=== PATIENT | female | born 1990 | race Caucasian/White ===

== ENCOUNTER 2016-06-15 14:20 | Inpatient (IN) | payer OTHER ==
[2016-06-15 16:01] VITALS: BMI 41.8
[2016-06-15] MEDS ORDERED: IV START KIT ONE (16:18)
[2016-06-15] MEDS ORDERED: LIDOCAINE 1% (PRES FREE) 30 ML VIAL ONE (16:19)
[2016-06-15] MEDS ORDERED: OXYTOCIN 10 UNITS/ML VIAL ONE (16:19)
[2016-06-15] MEDS ORDERED: LIDOCAINE Viscous 2% 15 ML UDCUP ONE (16:19)
[2016-06-15] MEDS ORDERED: OXYTOCIN IN LR 500 ML IV ONE (16:19)
[2016-06-15] MEDS ORDERED: MINERAL OIL 25 ML BOT ONE (16:19)
[2016-06-15] MEDS ORDERED: PUMP TUBING ONE (16:19)
[2016-06-15 17:26] LABS: HEMATOCRIT 39.2 % (37.0-47.0); HEMOGLOBIN 13.7 gm/l (12.0-16.0); MEAN CELL VOLUME 87.1 fl (81.0-99.0); MEAN CORPUSCULAR HEMOGLOBIN 30.4 pg (27.0-31.0); MEAN CORPUSCULAR HGB CONC 34.9 g/dl (33.0-37.0)
[2016-06-15 17:48] LABS: ALBUMIN 3.2 gm/dL (3.5-5.7); CALCIUM 9.4 mg/dL (8.6-10.3)
--- NOTE | 2016-06-15 17:51 | US ---
EXAMINATION : OB LIMITED HISTORY: Assess position. Patient in active labor. ASIM 06/10/2016. 40 weeks 5 days. COMPARISONS: Prior exam dated 11/30/2015. FINDINGS: There is a live intrauterine fetus in cephalic presentation of facing maternal left. Spine towards maternal right. heart rate at 164 bpm. IMPRESSION: Live intrauterine fetus in cephalic presentation. The findings were uploaded to the electronic medical record for review at approximately 5:49 PM 06/15/2016
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
[2016-06-15 21:42] LABS: CREATININE,RANDOM URINE 93 mg/dL
[2016-06-16] MEDS ORDERED: FENTANYL 100 MCG/2 ML VIAL ONE (10:41)
[2016-06-16] MEDS ORDERED: FENTANYL 100 MCG/2 ML VIAL IV ONE (11:05)
[2016-06-16] MEDS: LACTATED RINGERS 1,000 ML IV PRN ×2 (14:20→15:30)
[2016-06-16] MEDS ORDERED: FENTANYL/ROPIVACAINE EPIDURAL 250 ML EP ONE (14:25)
[2016-06-16] MEDS ORDERED: EPIDURAL PUMP SET ONE (14:25)
[2016-06-16] MEDS ORDERED: EPIDURAL PROCEDURE TRAY ONE (14:49)
--- NOTE | 2016-06-16 15:13 | PDOC36 ---
Provider Note Subject: CNM labor progress note Note: S: Sarah has been alternating between resting in bed and moving to encourage and cope with contractions over the last few hours. Around 0030, the contractions became too difficult to cope with in bed, so she has been mobilizing and breathing actively over the past hour, using hands and knees, the ball, and standing. She is unable to talk through contractions and is tearful with some. Feels them mainly in her lower abdomen, like a "bowling ball between her legs." Coping well and supported at bedside with Mitesh and friend Leon. O: VSS: T 36.6, P 100 bpm, BP 104/58 ctx q 2.5-3.5 minutes apart FHTs by IA: 145bpm, no decreases, no increases heard with auscultation ROT-ALANA by palpation A: IUP at 40wks, 6d GBS neg ROM x 13 hours Active labor FHR normal P: Continue assessment by IA, increase to q 30 minutes since patient is move active Encourage hands on support and position changes Pitocin augmentation not strongly recommended at this time as patient appears to be in active labor Reassess labor progress in 2 hours, recommend vaginal exam in 2-3 hours to assess progress Anticipate CALEB Frank
[2016-06-16] MEDS: FENTANYL/ROPIVACAINE EPIDURAL 250 ML EP SCH (15:14)
--- NOTE | 2016-06-16 15:14 | PDOC36 ---
Provider Note Subject: CNM Labor Progress Note Note: S: Sarah very tearful, states that she is "done." Reports an increase in pressure and has been actively trying position changes. Contractions mainly felt in her abdomen. Wants to have a vaginal exam to know labor progress. After exam, Sarah became very tearful, very overwhelmed by the pain of labor and lack of cervical change. Discussed options and risks and benefits of using tub/ shower, fentanyl, and epidural. Acknowledged that this is not where she anticipated being at this point in labor. Wants to try fentanyl and see if she can have a nap and reassess her energy and coping. O: BP 142/82, P 118, T 36.7, R 18/min FHTs by IA 150 ctx q 1.5- 3 minutes, approximately 60 s VE: 5/ 90%/-1, cervix mainly on left side, back on right side Coupling with contractions A: IUP at 40w6d Active labor, slow progress, GBS neg ROM x 22 hours, clear fluid, afebrile status normal P: 50 mcg Fentanyl administered IV cEFM during and one hour after administration of Fentanyl, reassess coping and pain management around noon After nap, encourage side lying static stretch on right side to support pelvic alignment, hands and knees and lunges in bed to promote rest CALEB Ojeda
[2016-06-16] MEDS ORDERED: EPHEDRINE SULFATE 50 MG/ML 1ML VIAL IV PRN (15:32)
[2016-06-16] MEDS ORDERED: NALOXONE HCL 0.4 MG/ML VIAL IV PRN (15:32)
[2016-06-16] MEDS ORDERED: METOCLOPRAMIDE HCL 5 MG/ML 2ML VIAL IV PRN (15:32)
[2016-06-16] MEDS ORDERED: SODIUM CHLORIDE 0.9% 500 ML IV PRN (15:32)
[2016-06-16] MEDS ORDERED: NALBUPHINE HCL 20 MG/ML AMP IV PRN (15:32)
[2016-06-16] MEDS ORDERED: ONDANSETRON 4 MG/2ML 2 ML VIAL IV PRN (15:32)
[2016-06-16] MEDS ORDERED: DIPHENHYDRAMINE HCL 50 MG/1 ML VIAL IV PRN (15:32)
[2016-06-16] MEDS ORDERED: LACTATED RINGERS 500 ML IV PRN (15:32)
[2016-06-16] MEDS: LACTATED RINGERS 1,000 ML IV SCH ×2 (18:21→18:54)
[2016-06-16] MEDS: OXYTOCIN IN LR 500 ML IV PRN ×5 (19:16→21:40)
--- NOTE | 2016-06-16 19:40 | PDOC36 ---
Provider Note Subject: Labor Progress Note Note: S: Assuming care of the patient. Resting comfortably with epidural. Denies feeling any sensation of pressure. O: EFM: 140/moderate variability/accels present/decels absent [place]: q 6-10 mins, moderate to palpation SVE: deferred due to prolonged SROM with inadequate contraction pattern (would not ion exchange operator at this point) VS: BP 127/56, HR 110, T 98.6F A: 25 year old at 40w6d Protracted active labor Inadequate contraction pattern after epidural anesthesia SROM x 31 hours; afebrile Maternal tachycardia (since admission) Suspected malposition P: Start pitocin augmentation. Consented patient on risks and benefits; patient agrees with plan. Positioned on right exaggerated Calle to facilitate rotation. Closely monitor for s/s of infection. Reassess SVE after 2 hours of adequate contraction pattern
--- NOTE | 2016-06-16 22:24 | PDOC36 ---
Provider Note Subject: Labor Progress Note Note: S: Resting in bed. Comfortable. Denies feeling any pressure/change in sensation. O: EFM: 150/moderate variability/accels present/decels absent [place]: q 2-4 mins, moderate to palpation SVE: 6.5/100/ROT/anterior asynclitic/-1/bulging forebag VS: HR 114, BP 123/64, T 36.6C Pitocin at 5mU/min A: Protracted active labor; pitocin augmentation SROM x 34 hours; afebrile FHR Cat 1 Maternal tachycardia Forebag present P: AROM of forebag for clear fluid. Continue with pitocin augmentation. Reassess SVE in 2-3 hours or PRN. Discussed IUPC placement if no further change.
[2016-06-17] MEDS ORDERED: ROPIVACAINE 0.5% 30 ML VIAL ONE (00:19)
--- NOTE | 2016-06-17 01:20 | PDOC36 ---
Provider Note Subject: S: Complained of lower back and rectal pressure at 2330. Exam unchanged. head attempting to rotate during contraction but not descending. Recommended IUPC and patient agreed. IUPC placed anteriorly without complication. Hip feels constricted on left side. 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 Discussed that pressure in lower back is likely due to attempts to rotate but is having difficulty finding space in the anterior/posterior pelvic diameter. Breathing through contractions. O: EFM: 150/moderate variability/accels present/decels absent IUPC: q 2-3 mins, 200 MVUs SVE: 7/100/-2/ROP/ant asynclitic (during placement of IUPC at 2330) VS: BP 116/56, HR 112, T 36.6C Pitocin at 7mU/min A: Prolonged SROM x 37 hours; afebrile Maternal tachycardia Protracted active labor; malposition/asynclitism Suspected cephalopelvic disproportion Pitocin augmentation FHR Cat 1 P: Called anesthesia to help with discomfort. Side lying release on right side x 25 mins. Simulated assymetrical squat on both sides with stirrups while patient getting pain relief. Will do exaggerate Calle on left and right side. Reassess in 2 hours and evaluate for primary c/s at this time. Patient aware that c/s is a possibility.
[2016-06-17] MEDS ORDERED: CEFAZOLIN SODIUM 2 GRAM PREMIX 2 G in Premix (D5W) 100 ml 1 EACH IV ONE (03:35)
[2016-06-17] MEDS ORDERED: ONDANSETRON 4 MG/2ML 2 ML VIAL IV ONE (03:36)
--- NOTE | 2016-06-17 03:51 | PDOC36 ---
Provider Note Subject: Labor Progress Note Note: S: Resting in bed. Starting to feel low back pressure again. O: EFM: 150/moderate variability/accels present/decels absent IUPC: q 2-3 mins, MVUs 195 SVE: 6/100/-2/OP/molding/caput Pitocin at 7 mU/min VS: HR 122 BP 115/60 T 37.7C A: Arrest of dilation x 5 hours with adequate contractions x 4 hours malposition Suspected cephalopelvic disproportion Prolonged SROM x 40 hours Afebrile Maternal tachycardia P: Discussed lack of change x 5 hours and only 1 cm change since 1000 yesterday morning. Multiple efforts at facilitating rotation. Discussed molding at - 2 station suggesting malposition and cephalopelvic disproportion.
--- NOTE | 2016-06-17 04:23 | PDOC36 ---
Provider Note Subject: Intrapartum consult Note: 25yo primigravida, at 40+5w, admitted with SROM 06/15/16 in PM. Pt had expectant management initially, and received epidural. Pt progressed to 5cm at 5am. Pt was started on pitocin at around 1900 and was 5cm at that time. However despite pitocin and adequate contractions, has been 6cm x 5 hours with moulding and no significant change. YARD SUPERVISOR consulted for primary c/section delivery. FHT is reactive and reassuring at this time Mcloud shows contractions q2-3 min Discussed c/section delivery indication and risks including bleeding, infection , injury to bowel, bladder, other organs. Postoperative expectations reviewed Anesthesia is aware.
[2016-06-17] MEDS ORDERED: FENTANYL 100 MCG/2 ML VIAL IV ONE (05:58)
[2016-06-17] MEDS: FENTANYL/ROPIVACAINE EPIDURAL 250 ML EP SCH (06:21)
[2016-06-17] MEDS: LACTATED RINGERS 1,000 ML IV SCH ×3 (06:21→14:41)
--- NOTE | 2016-06-17 06:43 | PDOC36 ---
Provider Note Subject: Labor Progress Note Note: S: Patient feeling rectal/back pressure again. Anesthesia called to help patient become more comfortable. Patient prepped for c/s and team called. Decision made to evaluate SVE prior to c/s in case of cervical change. O: EFM: 150/moderate variability/accels present/decels absent IUPC: MVUs 190, cxing q 2-4 mins SVE: 8/100/-1 VS: BP 115/60, HR 122 T 37.7C Pitocin: off A: Protracted active labor; progress since last exam SROM x 42 hours; afebrile FHR Cat 1 Suspected malposition P: Discussed cervical change with patient and Dr. garcia. Decision made collectively in light of stable maternal and status to continue to allow patient to labor for another 4 hours and reassess at that time whether c/s is still indicated. Reassess SVE in 4 hours or PRN.
[2016-06-17] MEDS ORDERED: MISOPROSTOL 200 MCG TABLET ONE (07:51)
[2016-06-17] MEDS ORDERED: CEFAZOLIN SODIUM 2 GRAM DUPLEX 2 G in Premix (D5W) 50 ml 1 EACH IV PRN (10:58)
[2016-06-17] MEDS ORDERED: LACTATED RINGERS 1,000 ML IV SCH (11:00)
--- NOTE | 2016-06-17 11:11 | PDOC36 ---
Provider Note Subject: Pre-op note Note: Daqna apparently progressed to 8cm, while waiting for Dr Khan to finish another emergency surgery. It was dedcided to allow her to progress further with monitoring contractions with an IUPC. Pitocin was continued. Unfortunately she has had no further change, no descent. Options were reviewed with pt and family. I am recommending a c/section for delivery. Exam shows EFW 8+ lbs, with breech in LUQ, probable posterior position. FH stable with no worrisome findings. 130's with accels. IMP: Failure to progress [id number] adequate labor. Probable malpositon with a large baby. Plan: Primary c/section.
[2016-06-17] MEDS ORDERED: ROPIVACAINE 0.75% 20 ML AMP ONE ×2 (11:15→11:50)
[2016-06-17] MEDS ORDERED: EPHEDRINE SULFATE UD SYR 25 MG 25 MG/5 ML SYRINGE IV ONE (11:48)
[2016-06-17] MEDS ORDERED: OXYTOCIN 10 UNITS/ML VIAL ONE (11:50)
[2016-06-17] MEDS ORDERED: ONDANSETRON 4 MG/2ML 2 ML VIAL ONE (11:58)
[2016-06-17] MEDS ORDERED: EPHEDRINE SULFATE 50 MG/ML 1ML VIAL IV PRN (12:00)
[2016-06-17] MEDS ORDERED: PROMETHAZINE HCL 25 MG/ML VIAL IM PRN (12:00)
[2016-06-17] MEDS ORDERED: ONDANSETRON 4 MG/2ML 2 ML VIAL IV PRN ×2 (12:00→13:43)
[2016-06-17] MEDS ORDERED: NALOXONE HCL 0.4 MG/ML VIAL IV PRN (12:00)
[2016-06-17] MEDS ORDERED: NALBUPHINE HCL 20 MG/ML AMP IV PRN (12:00)
[2016-06-17] MEDS ORDERED: DIPHENHYDRAMINE HCL 50 MG/1 ML VIAL IV PRN ×2 (12:00→13:43)
[2016-06-17] MEDS ORDERED: DIPHENHYDRAMINE HCL 50 MG/1 ML VIAL ONE (12:11)
[2016-06-17] MEDS ORDERED: MORPHINE SULFATE (DURAMORPH) 1 MG/ML 10ML AMP ONE (12:11)
[2016-06-17] MEDS ORDERED: MEASLES,MUMPS&RUBELLA VACCINE 0.5 ML VIAL SUB-Q V ONE (13:43)
[2016-06-17] MEDS ORDERED: DIPHENHYDRAMINE HCL 25 MG CAPSULE PO PRN (13:43)
[2016-06-17] MEDS ORDERED: DIPHTH,PERTUSS(ACELL),TET VAC 0.5 ML VIAL IM V ONE (13:43)
[2016-06-17] MEDS ORDERED: LANOLIN 50 APPLIC/7G TUBE TP PRN (13:43)
[2016-06-17] MEDS: KETOROLAC TROMETHAMINE 30 MG/ML 1 ML VIAL IV PRN ×2 (14:38→21:05)
[2016-06-17] MEDS ORDERED: HYDROMORPHONE HCL 1 MG/ML SYRINGE IV PRN (15:31)
[2016-06-17] MEDS: OXYCODONE HCL 5 MG TABLET PO PRN (23:17)
--- NOTE | 2016-06-18 01:10 | PCMBPN ---
Brief Post Op Note: Date of Procedure: 06/17/16 Start Time: Preoperative Diagnosis: 1. Failure to progress at 7cm Postoperative Diagnosis: 1. Same Procedure: Primary section (QUIANA transverse incision) Surgeon: Janae Angulo Assist:Birgit Abbott CNM Anesthesia: Mathew Almaguer, epidural Findings: Baby girl ROP, 8lb 8oz, 20.5 inches, 9/9 Condition: good Complications: none IV Fluids: mLs of LR Urine Output: mLs Estimated Blood Loss: 800 mLs Tourniquet Time: N/A Specimens: N/A Implants: N/A Drains: N/A
[2016-06-18] MEDS: DOCUSATE SODIUM 100 MG CAPSULE PO SCH ×3 (03:33→20:00)
[2016-06-18] MEDS: LACTATED RINGERS 1,000 ML IV SCH ×6 (03:34→10:32)
[2016-06-18] MEDS: KETOROLAC TROMETHAMINE 30 MG/ML 1 ML VIAL IV PRN (06:01)
[2016-06-18] MEDS: OXYCODONE HCL 5 MG TABLET PO PRN ×5 (06:19→20:00)
[2016-06-18 06:59] LABS: HEMATOCRIT 29.7 % (37.0-47.0); HEMOGLOBIN 10.1 gm/l (12.0-16.0); MEAN CELL VOLUME 88.1 fl (81.0-99.0); RED CELL DISTRIBUTION WIDTH 13.2 % (11.5-14.5)
--- NOTE | 2016-06-18 07:58 | PDOC44 ---
- Subjective Day: 1 Reports Pain Tolerable, Reports , Reports Lochia Light, Reports Tolerating Regular Diet - Objective Temp Pulse Resp BP Pulse Ox 97.6 F 102 18 120/64 99 06/18/16 07:49 06/18/16 07:49 06/18/16 07:49 06/18/16 07:49 06/18/16 07:49 Lab Results 06/18/16 06:15 WBC 15.7 H RBC 3.37 L Hgb 10.1 L Hct 29.7 L Plt Count 267 Current Medications Generic Name Dose Route Start Last Admin Trade Name Freq PRN Reason Stop Dose Admin Diphenhydramine HCl 25 - 50 mg 06/17/16 13:43 Benadryl PO Q6H PRN Itching (Mild/Moderate) Diphenhydramine HCl 25 - 50 mg 06/17/16 13:43 Benadryl IV Q6H PRN Itching (Severe) Diphenhydramine HCl 25 - 50 mg 06/17/16 12:00 Benadryl IV 06/18/16 12:00 Q4H PRN Itching Docusate Sodium 100 mg 06/17/16 21:00 06/18/16 03:33 Colace PO Not Given BID XIOMARA Emollient Ointment 1 applic 06/17/16 13:43 [id number] TP PRN PRN sore nipples Ephedrine Sulfate 5 - 10 mg 06/17/16 12:00 Ephedrine Sulfate IV 06/18/16 12:00 Q5M PRN Hydromorphone HCl 0.25 - 0.5 mg 06/17/16 15:31 Dilaudid IV Q5M PRN Pain (Breakthrough) Ropivacaine/Fentanyl/NS 250 mls @ 0 mls/hr 06/16/16 15:32 06/17/16 06:21 Fentanyl 2 Mcg/Ml + Ropivacaine 0.125% Ep Bag EP 12 mls/hr EPI XIOMARA Administration Protocol Per Protocol Lactated Ringer's 1,000 mls @ 125 mls/hr 06/17/16 13:43 06/18/16 07:11 Lactated Ringers IV Not Given .Q8H XIOMARA Ibuprofen 800 mg 06/17/16 13:43 Motrin PO Q6H PRN Pain Ketorolac Tromethamine 30 mg 06/17/16 13:43 06/18/16 06:01 Toradol IV 30 mg Q6H PRN Administration Pain (Mild/Moderate) Levothyroxine Sodium 100 mcg 06/18/16 07:30 Levothroid PO DAILY@0730 XIOMARA Multivi/Iron Carb/Fe Sulf/FA/Prenat 1 tab 06/18/16 09:00 Plus PO DAILY XIOMARA Nalbuphine HCl 1 - 5 mg 06/17/16 12:00 Nubain IV 06/18/16 12:00 Q4H PRN Itching Naloxone HCl 0.2 - 0.4 mg 06/17/16 12:00 Narcan IV 06/18/16 12:00 Q5M PRN Ondansetron HCl 4 mg 06/17/16 13:43 Zofran IV Q6H PRN Nausea/Vomiting Ondansetron HCl 4 mg 06/17/16 12:00 Zofran IV 06/18/16 12:00 Q6H PRN Nausea/Vomiting Oxycodone HCl 5 - 10 mg 06/17/16 13:43 06/18/16 06:19 Roxicodone PO 5 mg Q3H PRN Administration Pain (Severe) Promethazine HCl 6.25 - 12.5 mg 06/17/16 12:00 Phenergan IM 06/18/16 12:00 Q4H PRN Nausea/Vomiting Sodium Chloride 10 ml 06/15/16 17:00 06/18/16 06:02 Normal Saline 10ml Flush IV 10 ml Q8HR XIOMARA Administration Sodium Chloride 10 ml 06/17/16 13:43 Normal Saline 10ml Flush IV PRN PRN IV Flush - Physical Exam Fundus: Firm Abdomen: Normal Bowel Sounds, No Tenderness, No Distention Disposition: Stable (regular postop care)
[2016-06-18] MEDS: LEVOTHYROXINE SODIUM 100 MCG TABLET PO SCH (08:03)
[2016-06-18] MEDS: FENTANYL/ROPIVACAINE EPIDURAL 250 ML EP SCH (10:04)
[2016-06-18] MEDS: PRENATAL VIT/FE FUMARATE/FA 1 TABLET PO SCH (10:24)
--- NOTE | 2016-06-18 10:56 | OP ---
Sarah Sethi : 1990 DATE OF SURGERY: 06/17/2016 PREOPERATIVE DIAGNOSES: 1. Failure to progress at 7 cm. 2. Possible pelvic inlet restriction. POSTOPERATIVE DIAGNOSES: 1. Failure to progress at 7 cm. 2. Possible pelvic inlet restriction. PROCEDURE: Primary section (lower uterine segment transverse incision). SURGEON: Dr. Janae Angulo HELIARC WELDER: Birgit Abbott CNM SPEECH LANGUAGE PATHOLOGY ASSISTANT: Mathew Yu CRNA ANESTHESIA: Epidural. ESTIMATED BLOOD LOSS: 800 mL. FINDINGS: Intact lower uterine segment that was well developed. The bladder was noted to be relatively high and not draining well despite a Pablo catheter. This was a baby girl who was in a right occiput posterior position with the neck deflexed. She was born at 1207 on 06/17/2016. She weighed 8 pounds 8 ounces and was 20.5 inches long. scores were 9 at one minute and 9 at five minutes. PROCEDURE: By 11:00 a.m. it was determined that there was no further progress in this patient's labor. I was notified by the middle school art teacher Birgit Scar and came and evaluated Sarah. Indeed her exam showed a presenting part that was molding with caput in a occiput posterior position and was still at a -2 station. The cervix was 100% effaced and about 7 to 8 cm dilated. There was much head still palpable behind the symphysis pubis and in fact the Pablo catheter was not draining well because of so much pressure against the urethra compressing the catheter. An attempt was made to elevate the head and this helped drain the bladder a little bit, but the baby's head was quite tightly wedged even at this -2 station. It was recommended that we proceed with primary section. The risks and possible complications were reviewed with the patient and her . Their questions were answered. The consent was then signed. Preparations were rapidly made for the surgery. Once these preparations were completed the patient was brought to the operating room and placed on the operating room table in a supine position. A wedge was placed under the right hip. The usual monitoring leads were placed. During this time the epidural catheter was bolused with more medication. Just prior to the surgery, I again attempted to elevate the head out of the pelvis and drain the bladder further, but this was not very successful. The abdomen was then prepped and draped for a transverse suprapubic incision. A timeout was performed verifying proper patient, procedure, position, personnel, and equipment. The patient did receive a dose of Ancef just prior to the start of the surgery. After verifying an adequate level of anesthesia the patient's was invited into the room. The surgery was then begun by making a transverse suprapubic incision with the scalpel. This was carried down through the adipose layer with sharp and blunt dissection and using cautery for hemostasis. The fascia was incised the length the incision, it was mobilized superiorly and inferiorly. The muscles were in the midline. The peritoneum was identified and opened vertically. The lower uterine segment was exposed and did show classic findings for an occiput posterior baby. A distended edematous bladder was also noted. The Steve retractor was placed. The visceral peritoneum was opened transversely across the lower uterine segment. The bladder was mobilized inferiorly. A transverse incision was then made through the myometrium until the membranes were encountered and these were ruptured. There was a moderate amount of syrupy green fluid that was obtained. The baby was found to be in a right occiput posterior presentation with the head deflexed. The baby's chin was at the level of the incision. It was a bit difficult to bring the head up out of the pelvis, but this was accomplished as gently as possible. The head was flexed and delivered through the uterine incision and then the baby was delivered in the usual fashion. Her mouth and nose were suctioned and she was dried off as we allowed the cord to pulsate. This was found to be a vigorous baby girl who had scores of 9 at one minute and 9 at five minutes. She was shown to her parents during this time. The cord was then clamped and cut and the baby was handed to the resuscitation nurse. Cord blood was obtained. The placenta was then delivered and the uterus was explored and all blood clots and debris were removed. The uterus was exteriorized. The uterine incision was clamped with T-clamps. The incision was then closed with a continuous interlocking suture of 1 Chromic. There was a slight extension of this transverse incision at the right angle downward. An Allis clamp was placed at the deepest part of this extension and this was repaired in the usual fashion in two layers. After placing the imbrication suture hemostasis was excellent. The tone of the uterus was much improved. Fallopian tubes and ovaries appeared normal. The pelvis was then well irrigated. All blood clots and debris were removed. The uterus was placed back within the peritoneal cavity. We did some further irrigation. I then removed the Steve retractor and the bladder was examined. It appeared a little bit edematous, but otherwise was unharmed. It was now draining much better abigail colored urine. Hemostasis was verified. Lap, sponge, and instrument counts were reported as correct. The abdomen was then closed in layers as follows: peritoneum and muscle were reapproximated in the midline with 2-0 Vicryl, the fascia was closed with an 0 PDS looped suture, the adipose layer was closed with 2-0 Plain suture, the skin was then reapproximated with 4-0 Monocryl. Steri-Strips were placed followed by a bandage. The patient was cleaned up, she was transferred to her bed, and taken to the labor, delivery, and recovery room in stable condition. JOB: [id number]
[2016-06-18] MEDS: IBUPROFEN 800 MG TABLET PO PRN ×2 (13:41→20:00)
[2016-06-19] MEDS: OXYCODONE HCL 5 MG TABLET PO PRN ×5 (01:08→22:37)
[2016-06-19] MEDS: LACTATED RINGERS 1,000 ML IV SCH ×4 (03:56→16:07)
[2016-06-19] MEDS: IBUPROFEN 800 MG TABLET PO PRN ×4 (04:03→22:37)
--- NOTE | 2016-06-19 08:02 | PDOC44 ---
- Subjective Day: 2 (offers no complaints) Reports Flatus, Reports Pain Tolerable, Reports , Reports Lochia Light, Reports Tolerating Regular Diet, Denies Nausea, Denies Fever - Objective Temp Pulse Resp BP Pulse Ox 97.8 F 109 16 125/68 99 06/19/16 02:00 06/19/16 02:00 06/19/16 02:00 06/19/16 02:00 06/18/16 07:49 Current Medications Generic Name Dose Route Start Last Admin Trade Name Freq PRN Reason Stop Dose Admin Diphenhydramine HCl 25 - 50 mg 06/17/16 13:43 Benadryl PO Q6H PRN Itching (Mild/Moderate) Diphenhydramine HCl 25 - 50 mg 06/17/16 13:43 Benadryl IV Q6H PRN Itching (Severe) Docusate Sodium 100 mg 06/17/16 21:00 06/18/16 20:00 Colace PO 100 mg BID XIOMARA Administration Emollient Ointment 1 applic 06/17/16 13:43 [id number] TP PRN PRN sore nipples Hydromorphone HCl 0.25 - 0.5 mg 06/17/16 15:31 Dilaudid IV Q5M PRN Pain (Breakthrough) Ropivacaine/Fentanyl/NS 250 mls @ 0 mls/hr 06/16/16 15:32 06/18/16 10:04 Fentanyl 2 Mcg/Ml + Ropivacaine 0.125% Ep Bag EP Not Given EPI XIOMARA Protocol Per Protocol Lactated Ringer's 1,000 mls @ 125 mls/hr 06/17/16 13:43 06/19/16 03:58 Lactated Ringers IV Not Given .Q8H XIOMARA Ibuprofen 800 mg 06/17/16 13:43 06/19/16 04:03 Motrin PO 800 mg Q6H PRN Administration Pain Ketorolac Tromethamine 30 mg 06/17/16 13:43 06/18/16 06:01 Toradol IV 30 mg Q6H PRN Administration Pain (Mild/Moderate) Levothyroxine Sodium 100 mcg 06/18/16 07:30 06/18/16 08:03 Levothroid PO 100 mcg DAILY@0730 XIOMARA Administration Multivi/Iron Carb/Fe Sulf/FA/Prenat 1 tab 06/18/16 09:00 06/18/16 10:24 Plus PO 1 tab DAILY XIOMARA Administration Ondansetron HCl 4 mg 06/17/16 13:43 Zofran IV Q6H PRN Nausea/Vomiting Oxycodone HCl 5 - 10 mg 06/17/16 13:43 06/19/16 04:03 Roxicodone PO 10 mg Q3H PRN Administration Pain (Severe) Sodium Chloride 10 ml 06/15/16 17:00 06/19/16 03:58 Normal Saline 10ml Flush IV Not Given Q8HR XIOMARA Sodium Chloride 10 ml 06/17/16 13:43 Normal Saline 10ml Flush IV PRN PRN IV Flush - Physical Exam General: Afebrile, No Acute Distress Psych/Mental Status: Mood/Affect Appropriate, Judgment/Insight Intact, Bonding Well Lungs: Clear to Auscultation Bilaterally, Normal Air Movement Breast: Soft, Skin intact, Nipples Intact, No Tenderness, No Erythema, No Engorged Fundus: Firm, Midline, Below Umbilicus, Other (nontender) Abdomen: Normal Bowel Sounds, Other (passing flatus, no bowel movement yet), No Tenderness, No Distention Genitourinary: Other (voiding without difficulty) Extremities: No Tenderness Wound PULL WORKER: Well Approximated, No Drainage, No Erythema, No Edema Disposition: Anticipate DC to Home
[2016-06-19] MEDS: PRENATAL VIT/FE FUMARATE/FA 1 TABLET PO SCH (10:30)
[2016-06-19] MEDS: DOCUSATE SODIUM 100 MG CAPSULE PO SCH ×2 (10:30→23:56)
[2016-06-19] MEDS: FENTANYL/ROPIVACAINE EPIDURAL 250 ML EP SCH (16:06)
[2016-06-19] MEDS: LEVOTHYROXINE SODIUM 100 MCG TABLET PO SCH (22:46)
[2016-06-20] MEDS: IBUPROFEN 800 MG TABLET PO PRN ×2 (05:14→12:46)
[2016-06-20] MEDS: OXYCODONE HCL 5 MG TABLET PO PRN ×2 (05:14→12:47)
--- NOTE | 2016-06-20 08:43 | PDOC39B ---
Hospital Course: ADMIT DATE: 06/15/16 DISCHARGE DATE: 06/20/16 ADMISSION DIAGNOSES: intrauterine at 40.5 weeks gestation, premature rupture of membranes, hypothyroidism PROCEDURES: primary lower segment cesarian section HISTORY OF PRESENT ILLNESS: 25 year old G1 T0 L0 at 41 weeks 0 days presenting with spontaneous rupture of membranes, no labor, history of hypothyroidism HOSPITAL COURSE: The patient had an uneventful post operative course, post operative anemia. By day of discharge the patient is ambulating, eating, voiding, and passing flatus without difficulty. Pain is controlled and lochia is appropriate. She is [] - Physical Exam Vital Signs: Temp Pulse Resp BP Pulse Ox 98.6 F 101 16 130/80 99 06/19/16 20:07 06/19/16 20:07 06/19/16 20:07 06/19/16 20:07 06/18/16 07:49 General: Afebrile, No Acute Distress Psych/Mental Status: Mood/Affect Appropriate, Judgment/Insight Intact, Bonding Well Lungs: Clear to Auscultation Bilaterally, Normal Air Movement Breast: Soft, Skin intact, Nipples Intact, No Tenderness, No Erythema, No Engorged Fundus: Firm, Midline, Below Umbilicus, Other (nontender) Abdomen: Normal Bowel Sounds, Other (passing flatus, no bowel movement yet), No Tenderness, No Distention Genitourinary: Other (voiding without difficulty) Lochia: Light Extremities: No Tenderness Wound: Well Approximated, Other (nontender), No Drainage, No Erythema, No Edema - Discharge Diagnosis (1) Postoperative anemia due to acute blood loss Status: Acute (2) Failure of cervical dilation Status: Acute - Discharge Plan Condition: Stable Disposition: Home Additional Instructions: nothing in vagina x 6 weeks, analgesics as needed for pain, take iron supplementation as prescribed, office visit one week with dr vaughn, call if any fever, bleeding or increasing pain Prescriptions: Ibuprofen [Motrin] 800 mg PO Q8H PRN #30 tablet PRN Reason: Pain FERROUS SULFATE (65 Fe) [IRON FERROUS SULFATE 325 MG TABLET (SHF)] 325 mg PO DAILY #30 tab Oxycodone HCl/Acetaminophen [PERCOCET 5/325 MG TABLET (SHF)] 1 - 2 tab PO Q4H PRN #14 tablet PRN Reason: Pain (Moderate)
[2016-06-20 09:01] VITALS: BP 119/73
[2016-06-20] MEDS: DOCUSATE SODIUM 100 MG CAPSULE PO SCH (12:46)
[2016-06-20] MEDS: PRENATAL VIT/FE FUMARATE/FA 1 TABLET PO SCH (12:46)
== END 2016-06-20 13:54 | disposition home or self-care (01) | DRG 765 ==
LOC: FBCOUT 14:20 → FBC 15:00
PROVIDERS: ADMIT Registered Nurse; ATTEND Obstetrics & Gynecology
PROC: 10H07YZ Insertion of Other Device into Products of Conception, Via Natural or Artificial Opening (ICD-10-PCS; 2016-06-16)
PROC: 10D00Z1 Extraction of Products of Conception, Low, Open Approach (ICD-10-PCS; principal; 2016-06-17)
DX: O48.0 Post-term pregnancy (principal); O99.02 Anemia complicating childbirth; D62 Acute posthemorrhagic anemia; O99.284 Endocrine, nutritional and metabolic diseases complicating childbirth; E03.9 Hypothyroidism, unspecified; O75.9 Complication of labor and delivery, unspecified; R00.0 Tachycardia, unspecified; O62.1 Secondary uterine inertia; O65.9 Obstructed labor due to maternal pelvic abnormality, unspecified; O64.1XX0 Obstructed labor due to breech presentation, not applicable or unspecified; Z3A.40 40 weeks gestation of pregnancy; Z37.0 Single live birth

== ENCOUNTER 2016-06-23 10:52 | Outpatient (CLI) | payer OTHER | END 2016-06-23 10:53 | disposition home or self-care (01) | LOC: BABIESSH 10:52 | PROVIDERS: ATTEND Licensed Practical Nurse | DX: Z39.1 Encounter for care and examination of lactating mother (principal) ==

== ENCOUNTER 2016-06-27 09:59 | Outpatient (CLI) | payer OTHER | END 2016-06-27 10:00 | disposition home or self-care (01) | LOC: BABIESSH 09:59 | PROVIDERS: ATTEND Advanced Practice Midwife | DX: Z39.1 Encounter for care and examination of lactating mother (principal) ==

== ENCOUNTER 2016-07-04 09:54 | Outpatient (CLI) | payer OTHER | END 2016-07-04 09:55 | disposition home or self-care (01) | LOC: BABIESSH 09:54 | PROVIDERS: ATTEND Advanced Practice Midwife | DX: Z39.1 Encounter for care and examination of lactating mother (principal) ==

== ENCOUNTER 2016-07-11 09:59 | Outpatient (CLI) | payer OTHER | END 2016-07-11 10:00 | disposition home or self-care (01) | LOC: BABIESSH 09:59 | PROVIDERS: ATTEND Advanced Practice Midwife | DX: Z39.1 Encounter for care and examination of lactating mother (principal) ==